=== PATIENT | male | born 1955 | race Caucasian/White ===

== ENCOUNTER 2016-09-02 23:54 | Emergency (ER) | payer OTHER ==
[~2016-09-02] VITALS: Ht 175.3 cm; Wt 99.8 kg
[~2016-09-02 23:54] MED LIST: GABA-531 PO; IBUP-1479 PO; LOSA100T11 PO; MORP15TA60 PO
[2016-09-03 00:15] VITALS: BP_SYST 151
[2016-09-03] MEDS ORDERED: PROMETHAZINE-DM 6.25 MG-15 MG/5 ML UDC PO PRN (00:45)
[2016-09-03] MEDS ORDERED: LevALBUTEROL HCL 1.25 MG/0.5 ML *CONC.* VIAL.NEB (XOPENEX CONC.) INH ONE ×2 (00:45→02:00)
[2016-09-03] MEDS ORDERED: IPRATROPIUM BROM 0.5 MG/2.5 ML VIAL.NEB (ATROVENT) IH ONE (00:45)
[2016-09-03] MEDS ORDERED: IPRATROPIUM/ALBUTEROL SULFATE 3 ML AMPUL.NEB ONE (01:04)
[2016-09-03] MEDS ORDERED: BUDESONIDE 0.5 MG/2 ML AMPUL.NEB ONE (01:04)
[2016-09-03] MEDS ORDERED: ALBUTEROL SULFATE 0.083% 2.5 MG/3 ML VIAL.NEB INH ONE (01:04)
[2016-09-03] MEDS ORDERED: AZITHROMYCIN 250 MG TABLET PO ONE (02:00)
[2016-09-03 02:50] VITALS: BP_SYST 134
== END 2016-09-03 02:50 | disposition home or self-care (01) ==
LOC: SED 23:54
DX: J40 Bronchitis, not specified as acute or chronic (principal); I10 Essential (primary) hypertension; Z88.0 Allergy status to penicillin; Z88.5 Allergy status to narcotic agent
CPT/HCPCS: 71020; 94640; 99284; Q0144

== ENCOUNTER 2016-09-19 18:43 | Emergency (ER) | payer OTHER ==
[~2016-09-19] VITALS: Ht 175.3 cm; Wt 98.9 kg
[2016-09-19 18:56] VITALS: BP_SYST 160
[2016-09-19 19:25] VITALS: BP_SYST 158
== END 2016-09-19 19:25 | disposition home or self-care (01) ==
LOC: SED 18:43
DX: J40 Bronchitis, not specified as acute or chronic (principal); I10 Essential (primary) hypertension; Z88.5 Allergy status to narcotic agent; Z88.0 Allergy status to penicillin
CPT/HCPCS: 71010; 99283

== ENCOUNTER 2016-09-26 03:48 | Emergency (ER) | payer OTHER ==
[~2016-09-26] VITALS: Ht 175.3 cm; Wt 99.8 kg
[2016-09-26 03:52] VITALS: BP_SYST 145
[2016-09-26] MEDS ORDERED: MAGNESIUM SULFATE 1 GM/2 ML VIAL ONE (04:20)
[2016-09-26] MEDS: methylPREDNISolone SOD SUCC/PF 62.5 MG/ML VIAL IVP ONE (04:23)
[2016-09-26] MEDS: IPRATROPIUM BROM 0.5 MG/2.5 ML VIAL.NEB (ATROVENT) IH ONE ×2 (04:24→05:03)
[2016-09-26] MEDS: ALBUTEROL SULFATE 0.083% 2.5 MG/3 ML VIAL.NEB IH ONE ×2 (04:24→05:02)
[2016-09-26] MEDS: MAGNESIUM SULFATE 1 GM in NS 50 ML IV ONE (04:25)
== END 2016-09-26 05:20 | disposition home or self-care (01) ==
LOC: SED 03:48
DX: J45.901 Unspecified asthma with (acute) exacerbation (principal); I10 Essential (primary) hypertension; F32.9 Major depressive disorder, single episode, unspecified; Z88.0 Allergy status to penicillin; Z88.5 Allergy status to narcotic agent
CPT/HCPCS: 71010; 94640; 96365; 96375; 99284; J2930; J3475

== ENCOUNTER 2016-11-15 23:43 | Emergency (ER) | payer OTHER ==
[~2016-11-15] VITALS: Ht 175.3 cm; Wt 99.8 kg
[2016-11-15 23:43] VITALS: BP_SYST 153
--- NOTE | 2016-11-15 23:43 | NUR ---
Patient to ER bed 6 to gown for evaluation. Side rails up. Report given to JUANA SPAIN.
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
--- NOTE | 2016-11-16 00:23 | NUR ---
Dr. Proctor at bedside.
[2016-11-16] MEDS ORDERED: KETOROLAC TROMETHAMINE 60 MG/2 ML VIAL IM ONE (00:30)
--- NOTE | 2016-11-16 01:02 | NUR ---
Patient resting quietly. No acute distress noted. Vital signs within normal range.
[2016-11-16 02:12] VITALS: BP_SYST 132
--- NOTE | 2016-11-16 02:12 | NUR ---
Patient given written and verbal discharge instructions and verbalizes understanding. ER MD discussed with patient the results and treatment provided. Patient in stable condition. ID arm band removed. Rx of Naprosyn given. Patient educated on pain management and to follow up with PMD in 2 days. Pain Scale 4/10, patient discharged with Naprosyn. Patient reports that he will fill his medication tonight and does not want any other medication for pain. Opportunity for questions provided and answered.
== END 2016-11-16 02:12 | disposition home or self-care (01) ==
LOC: SED 23:43
DX: S13.4XXA Sprain of ligaments of cervical spine, initial encounter (principal); S33.9XXA Sprain of unspecified parts of lumbar spine and pelvis, initial encounter; S09.90XA Unspecified injury of head, initial encounter; R10.30 Lower abdominal pain, unspecified; I10 Essential (primary) hypertension; J45.909 Unspecified asthma, uncomplicated; Z90.89 Acquired absence of other organs; Z88.0 Allergy status to penicillin; Z88.5 Allergy status to narcotic agent; Z79.899 Other long term (current) drug therapy; V89.2XXA Person injured in unspecified motor-vehicle accident, traffic, initial encounter; Y93.89 Activity, other specified; Y92.410 Unspecified street and highway as the place of occurrence of the external cause; Y99.8 Other external cause status
CPT/HCPCS: 70450; 72125; 72131; 74176; 96372; 99284; J1885

== ENCOUNTER 2017-01-04 17:39 | Emergency (ER) | payer OTHER ==
[~2017-01-04] VITALS: Ht 175.3 cm; Wt 97.5 kg
[2017-01-04 17:49] VITALS: BP_SYST 157
[2017-01-04 20:28] VITALS: BP_SYST 140
== END 2017-01-04 20:28 | disposition home or self-care (01) ==
LOC: SED 17:39
DX: L03.811 Cellulitis of head [any part, except face] (principal); J45.909 Unspecified asthma, uncomplicated; I10 Essential (primary) hypertension; F32.9 Major depressive disorder, single episode, unspecified; M19.90 Unspecified osteoarthritis, unspecified site; Z90.89 Acquired absence of other organs; Z88.0 Allergy status to penicillin; Z88.5 Allergy status to narcotic agent; Z79.899 Other long term (current) drug therapy
CPT/HCPCS: 99283

== ENCOUNTER 2017-05-09 16:41 | Emergency (ER) | payer OTHER ==
[~2017-05-09] VITALS: Ht 175.3 cm; Wt 97.5 kg
[2017-05-09 16:41] VITALS: BP_SYST 154
[2017-05-09] MEDS ORDERED: ONDANSETRON HCL 4 MG/2 ML VIAL IVP ONE (19:45)
[2017-05-09] MEDS ORDERED: ONDANSETRON 4 MG ODT TAB PO ONE (20:15)
[2017-05-09 20:36] VITALS: BP_SYST 132
== END 2017-05-09 20:35 | disposition home or self-care (01) ==
LOC: SED 16:41
DX: A08.4 Viral intestinal infection, unspecified (principal); J45.909 Unspecified asthma, uncomplicated; I10 Essential (primary) hypertension; M19.90 Unspecified osteoarthritis, unspecified site; Z88.0 Allergy status to penicillin; Z88.5 Allergy status to narcotic agent; Z90.89 Acquired absence of other organs
CPT/HCPCS: 99283; Q0162; J2405

== ENCOUNTER 2018-07-26 15:34 | Emergency (ER) | payer OTHER, MEDICAID ==
[~2018-07-26] VITALS: Ht 175.3 cm; Wt 93.9 kg
[~2018-07-26 15:34] MED LIST changes: -IBUP-1479 PO; +IBUP-1968 PO; -LOSA100T11 PO; +LOSA100T3 PO
[2018-07-26 15:56] VITALS: BP_SYST 136
== END 2018-07-26 18:10 | disposition home or self-care (01) ==
LOC: SED 15:34
DX: J10.1 Influenza due to other identified influenza virus with other respiratory manifestations (principal); I10 Essential (primary) hypertension; J45.909 Unspecified asthma, uncomplicated; M19.90 Unspecified osteoarthritis, unspecified site; F32.9 Major depressive disorder, single episode, unspecified; Z88.0 Allergy status to penicillin; Z88.5 Allergy status to narcotic agent; Z79.899 Other long term (current) drug therapy
CPT/HCPCS: 36415; 71045; 86710; 99284

== ENCOUNTER 2018-09-06 19:26 | Emergency (ER) | payer OTHER, MEDICAID ==
[~2018-09-06] VITALS: Ht 175.3 cm; Wt 90.7 kg
[2018-09-06 19:38] VITALS: BP_SYST 158
[2018-09-06] MEDS ORDERED: CLINDAMYCIN PHOSPHATE 300 MG/2 ML VIAL IM ONE (20:00)
[2018-09-06] MEDS ORDERED: KETOROLAC TROMETHAMINE 60 MG/2 ML VIAL IM ONE (20:00)
[2018-09-06 20:24] VITALS: BP_SYST 142
== END 2018-09-06 20:24 | disposition home or self-care (01) ==
LOC: SED 19:26
DX: K08.89 Other specified disorders of teeth and supporting structures (principal); J45.909 Unspecified asthma, uncomplicated; I10 Essential (primary) hypertension; M19.90 Unspecified osteoarthritis, unspecified site; F32.9 Major depressive disorder, single episode, unspecified; Z90.89 Acquired absence of other organs; Z88.0 Allergy status to penicillin; Z88.5 Allergy status to narcotic agent; Z79.899 Other long term (current) drug therapy
CPT/HCPCS: 96372; 99283; J1885; J3490

== ENCOUNTER 2018-09-09 20:20 | Emergency (ER) | payer OTHER, MEDICAID ==
[~2018-09-09] VITALS: Ht 175.3 cm; Wt 92.1 kg
[2018-09-09 20:33] VITALS: BP_SYST 148
--- NOTE | 2018-09-09 22:48 | NUR ---
Pt c/o pain to site of tooth extraction to front right lower jaw. Pt states tooth was extracted on 09/02/2018, but he ran out of pain medication. No swelling or drainage noted to site. Pt states that he received an Rx for [place] but never got it filled, and has been taking Ibuprofen instead. Pt is requesting a refill of Ibuprofen.
--- NOTE | 2018-09-09 22:48 | NUR ---
Patient to ER bed 08 to gown for evaluation. Side rails up.
--- NOTE | 2018-09-09 23:18 | NUR ---
Dr. Godinez at bedside.
[2018-09-09] MEDS ORDERED: HYDROcodone/ACETAMIN 5-325 MG TAB (NORCO/ VICODIN) PO ONE (23:30)
[2018-09-09 23:34] VITALS: BP_SYST 133
--- NOTE | 2018-09-09 23:34 | NUR ---
Patient given written and verbal discharge instructions and verbalizes understanding. ER MD discussed with patient the results and treatment provided. Patient in stable condition. ID arm band removed. Rx of Ibuprofen given. Patient educated on pain management and to follow up with PMD. Pain Scale 3/10. Opportunity for questions provided and answered. Medication side effect fact sheet provided.
== END 2018-09-09 23:31 | disposition home or self-care (01) ==
LOC: SED 20:20
DX: K91.89 Other postprocedural complications and disorders of digestive system (principal); J45.909 Unspecified asthma, uncomplicated; I10 Essential (primary) hypertension; M19.90 Unspecified osteoarthritis, unspecified site; F32.9 Major depressive disorder, single episode, unspecified; Z88.0 Allergy status to penicillin; Z88.5 Allergy status to narcotic agent; Z79.899 Other long term (current) drug therapy
CPT/HCPCS: 99282

== ENCOUNTER 2018-09-16 14:33 | Emergency (ER) | payer OTHER, MEDICAID ==
[~2018-09-16] VITALS: Ht 175.3 cm; Wt 92.5 kg
[2018-09-16 14:57] VITALS: BP_SYST 162
--- NOTE | 2018-09-16 15:01 | NUR ---
Patient triaged and placed in waiting room. VSS and patient appears in no acute distress at this time. Accompanied by self, awaiting available bed, and MD notified of need for MSE.
--- NOTE | 2018-09-16 16:08 | NUR ---
Pt taken to eyewash station and instructed to wash eyes ~10 minutes. Visual acuity to be completed s/p eye wash
--- NOTE | 2018-09-16 16:25 | NUR ---
PT reports no relief from eyewash. Visual acuity: L: 20/25, R: 20/25; Bilateral: 20/25. Pt reports he wears glasses, but isn't wearing them today.
--- NOTE | 2018-09-16 16:26 | NUR ---
Pt placed back in waiting room with no apparent distress.
--- NOTE | 2018-09-16 16:52 | NUR ---
BROUGHT BACK TO BED #8 AND REPORT GIVEN TO JOHANA
--- NOTE | 2018-09-16 16:53 | NUR ---
Pt AAOx4 ambulated into ED c/o irritation to bilateral eyes s/p getting brush in his eyes while trimming trees x 4 days ago. Pt has been rinsing eyes with no relief. Pt denies pain, but feels sensation of splinters poking the back of his eyes. Redness to eyes present, no discharge. No other injuries/complaints per pt/noted. Will continue to monitor.
--- NOTE | 2018-09-16 17:16 | NUR ---
Dr. Meyers @ bedside for examination.
[2018-09-16 18:16] VITALS: BP_SYST 155
--- NOTE | 2018-09-16 18:16 | NUR ---
Patient given written and verbal discharge instructions and verbalizes understanding. ER MD Meyers discussed with patient the results and treatment provided. Patient in stable condition. ID arm band removed. Rx of Sulfacetamide Sodium 10% Ophthalmic Solution given. Patient educated on pain management and to follow up with PMD. Pain Scale 0. Opportunity for questions provided and answered. Medication side effect fact sheet provided.
[2018-09-16] MEDS ORDERED: DIPH-TET-PERTUS Vaccine 0.5 ML VIAL (ADACEL) I.M. ONE (18:30)
== END 2018-09-16 18:16 | disposition home or self-care (01) ==
LOC: SED 14:33
DX: T15.02XA Foreign body in cornea, left eye, initial encounter (principal); H10.9 Unspecified conjunctivitis; J45.909 Unspecified asthma, uncomplicated; I10 Essential (primary) hypertension; M19.90 Unspecified osteoarthritis, unspecified site; F32.9 Major depressive disorder, single episode, unspecified; Z88.0 Allergy status to penicillin; Z88.5 Allergy status to narcotic agent; Z79.899 Other long term (current) drug therapy; X58.XXXA Exposure to other specified factors, initial encounter; Y93.89 Activity, other specified; Y92.89 Other specified places as the place of occurrence of the external cause; Y99.8 Other external cause status
CPT/HCPCS: 90715; 99284

== ENCOUNTER 2019-02-03 00:18 | Inpatient (IN) | payer OTHER, MEDICAID ==
[~2019-02-03] VITALS: Ht 175.3 cm; Wt 98.9 kg
[2019-02-03 00:23] VITALS: BP_SYST 160
--- NOTE | 2019-02-03 00:23 | NUR ---
Patient triaged and placed in waiting room. VSS and patient appears in no acute distress at this time. Accompanied by SELF, awaiting available bed, and MD notified of need for MSE.
[2019-02-03 01:26] LABS: BASOPHILS # (AUTO) 0.1 K/uL (0.0-0.2); EOSINOPHILS # (AUTO) 0.2 K/uL (0.0-0.4); EOSINOPHILS % (AUTO) 2.6 % (0.0-4.0); HEMATOCRIT 41.9 % (36-54); HEMOGLOBIN 14.8 g/dL (14.0-18.0); LYMPHOCYTES # (AUTO) 1.4 K/uL (1.0-5.5); LYMPHOCYTES % (AUTO) 15.2 % (20.5-51.5); MEAN CORPUSCULAR HEMOGLOBIN 33 pg (27-31); MEAN CORPUSCULAR HGB CONC 35 % (32-36); MEAN CORPUSCULAR VOLUME 94 fL (79.0-98.0); MONOCYTES # (AUTO) 0.8 K/uL (0.0-1.0); MONOCYTES % (AUTO) 8.6 % (1.7-9.3); NEUTROPHILS # (AUTO) 6.8 K/uL (1.8-7.7); NEUTROPHILS % (AUTO) 72.6 % (40.0-70.0); PLATELET COUNT (AUTO) 283 K/uL (130-430); RED BLOOD CELL COUNT(AUTO) 4.44 MIL/uL (4.2-6.2); RED CELL DISTRIBUTION WIDTH 13.6 % (9.0-15.0); WHITE BLOOD COUNT (AUTO) 9.4 K/uL (4.8-10.8)
[2019-02-03 01:35] LABS: CALCIUM 8.5 mg/dL (8.4-11.0); CREATININE 0.99 mg/dL (0.55-1.30); POTASSIUM 4.1 mmol/L (3.5-5.1)
[2019-02-03 01:44] LABS: ALBUMIN 3.6 g/dL (3.4-4.8); TOTAL BILIRUBIN 0.7 mg/dL (0.0-1.0)
--- NOTE | 2019-02-03 02:12 | NUR ---
Placed in room 1 . Placed on cardiac cath lab manager, blood pressure machine and pulse oximeter. To gown for exam. Side rails up. Report given to LIUDMILA SPAIN.
[2019-02-03 02:17] LABS: CKMB RELATIVE INDEX 1.5 (0.0-2.9); CREATINE KINASE MB 5.6 ng/mL (0-3.6)
--- NOTE | 2019-02-03 02:30 | NUR ---
pt CAME TO THE ED FOR BILATERAL LEG SWELLING WHICH STARTED YESTERDAY, DENIES SOB OR CHEST PAIN. DENIES N/V/D OR FEVER. NO OTHER COMPLAINTS/INJURIES NOTED. LATISHA CONT. TO MONITOR.
--- NOTE | 2019-02-03 02:39 | NUR ---
ER at bedside examining patient.
[2019-02-03] MEDS ORDERED: FUROSEMIDE 40 MG/4 ML VIAL IVP ONE (02:45)
[2019-02-03] MEDS ORDERED: MORPHINE 4 MG/ML INJ. SYRINGE IVP ONE (02:45)
--- NOTE | 2019-02-03 03:17 | NUR ---
Ultrasound at bedside.
[2019-02-03] MEDS ORDERED: TRAM-350 PO (03:34)
[2019-02-03] MEDS ORDERED: BACL10TA PO (03:34)
[2019-02-03] MEDS ORDERED: LOSA100T3 PO (03:34)
--- NOTE | 2019-02-03 04:00 | NUR ---
Patient will be admitted to care of dR. VASQUEZ. Admitted to tELE unit. Will go to room 125. Belongings list completed. Summary report printed. Report will be given at bedside.
--- NOTE | 2019-02-03 04:20 | NUR ---
Medication reconciliation completed with information provided by patient. Any prior medication reconciliation on file was reviewed and corrected.
--- NOTE | 2019-02-03 04:51 | NUR ---
Transfer to Tele via ACLS protocol. Licensed nurse present. IV present no signs or symptoms of infiltration.
--- NOTE | 2019-02-03 04:51 | NUR ---
ADMISSION NOTE Received patient from ER via spenser, received report from Sarah SPAIN. Patient admitted with diagnosis of Lower extremity edema. Patient oriented to hospital routine, call light, toileting and safety-patient verbalized understanding.
--- NOTE | 2019-02-03 04:55 | NUR ---
Opening notes Patient is resting comfortably in bed. No signs of distress noted. Breathing even and unlabored. IV patent and intact, no signs of infiltration noted. Patient states he usually has knee braces, but is unable to use them due to his leg swelling. Patient uses canes x2 to help him walk. Patient states he walks fine, "I just have bad knees." Oriented patient to room and call light. Patient able to demonstrate how to use call light. Call light with the patient. Safety precautions in place.
[2019-02-03 05:01] VITALS: BP_SYST 143
--- NOTE | 2019-02-03 05:26 | NUR ---
CONSULTATION PAGED/CALLED Reason for Consultation: ELEVATED TROP Person Who was Notified: Consulting Physician: PRASHANT Modeling Teacher Specialty: CARDIO Ordering Physician: PEDRO
--- NOTE | 2019-02-03 05:26 | NUR ---
Spoke to Dr. Ervin Informed MD about elevated troponin and if he wanted to add morning labs. No new orders. MD will input orders.
--- NOTE | 2019-02-03 07:31 | NUR ---
Initial notes: Patient awake, alert and oriented. Stable. I.V. access patent. Call light within reach. Safety measures in placed. Report received from night filler.
[2019-02-03 08:00] VITALS: BP_SYST 130
[2019-02-03] MEDS ORDERED: POTASSIUM CHLORIDE 20 MEQ TAB.PRT.SR PO PRN (08:45)
[2019-02-03] MEDS ORDERED: LORazepam 2 MG/ML VIAL IVP PRN (08:45)
[2019-02-03] MEDS ORDERED: MAGNESIUM SULFATE 50 ML IV PRN (08:45)
[2019-02-03] MEDS ORDERED: MUPIROCIN 2% TOPICAL OINTMENT 22 GM NS PRN (08:45)
[2019-02-03] MEDS ORDERED: ONDANSETRON HCL 4 MG/2 ML VIAL IVP PRN (08:45)
[2019-02-03] MEDS ORDERED: MORPHINE 2 MG/ML INJ. SYRINGE IVP PRN ×2 (08:45)
[2019-02-03] MEDS ORDERED: ZOLPIDEM TARTRATE 5 MG TABLET PO PRN (08:45)
[2019-02-03] MEDS ORDERED: DOCUSATE SODIUM 100 MG CAPSULE PO PRN (08:45)
[2019-02-03] MEDS: GABAPENTIN 300 MG CAPSULE PO SCH ×3 (09:13→20:42)
[2019-02-03] MEDS: LOSARTAN POTASSIUM 50 MG TABLET (COZAAR) PO SCH ×2 (09:14→20:42)
[2019-02-03] MEDS: BACLOFEN 10 MG TABLET PO SCH ×2 (09:14→20:42)
[2019-02-03] MEDS: HEPARIN SODIUM,PORCINE 5000 UNITS/ML VIAL SUBCUT SCH ×2 (09:15→20:44)
--- NOTE | 2019-02-03 09:17 | NUR ---
2DECHO: 2DECHO AT BEDSIDE.
--- NOTE | 2019-02-03 11:45 | NUR ---
rounds: Patient sleeping. No distress noted.
[2019-02-03 12:12] VITALS: BP_SYST 134
--- NOTE | 2019-02-03 14:02 | NUR ---
rounds: patient sleeping. no distress noted.
[2019-02-03 16:35] VITALS: BP_SYST 131
--- NOTE | 2019-02-03 17:05 | NUR ---
rounds: patient sleeping. no distress noted.
--- NOTE | 2019-02-03 18:21 | NUR ---
Closing notes: Patient resting on bed and about to eat dinner. Stable. Needs attended. Call light within reach. Safety measures in placed. Report will be given to operating room surgical technologist.
--- NOTE | 2019-02-03 19:45 | NUR ---
OPENING NOTES Received patient asleep, eyes closed. No signs of acute respiratory distress, room air. Call light within reach, bed alarm on, and bed at lowest position. Will continue to monitor.
[2019-02-03 20:00] VITALS: BP_SYST 167
--- NOTE | 2019-02-04 00:06 | NUR ---
Patient is resting, eyes closed. No signs of acute respiratory distress observed. Safety precautions in place. Will continue to monitor.
--- NOTE | 2019-02-04 01:44 | NUR ---
CRITICAL LAB - TROPONIN 0.072 RECEIVED FROM LAB ([facility]). PREVIOUS TROP LEVEL WAS 0.071.
--- NOTE | 2019-02-04 02:12 | NUR ---
Patient awake, HOB elevated. Patient has asked for sandwiches. No signs of acute respiratory distress. IV SL patent, dressings c/d/i. Bed alarm on, bed at lowest position, and call light within reach. Will continue to monitor.
--- NOTE | 2019-02-04 02:16 | NUR ---
PAGED: PAGED DR. CERDA REGARDING CRITICAL VALUE. SPOKE WITH GLORY
[2019-02-04 02:32] VITALS: BP_SYST 113
--- NOTE | 2019-02-04 03:26 | NUR ---
PAGED: PAGED DR. CERDA REGARDING CRITICAL LAB. DR. ROSEN IS AUTOMOTIVE GLASS MECHANIC. SPOKE WITH SUYAPA
--- NOTE | 2019-02-04 03:28 | NUR ---
Spoke to Dr. Bailey regarding critical troponin of 0.072. No new orders. Will continue to monitor.
--- NOTE | 2019-02-04 04:15 | NUR ---
Patient is awake, watching television. No signs of respiratory distress. HOB elevated. Reoriented patient to use of call light. Safety precautions in place. Will continue to monitor.
--- NOTE | 2019-02-04 06:28 | NUR ---
CLOSING NOTES Patient is resting. No signs of acute respiratory distress, HOB elevated. IV at Left AC 20g, patent, dressings c/d/i. Call light within reach, bed alarm on, bed at lowest position. HOB elevated. Will endorse care to oncoming shift.
[2019-02-04 08:00] VITALS: BP_SYST 148
[2019-02-04] MEDS ORDERED: traMADol HCL HCL 50 MG TABLET (ULTRAM) PO ONE (09:45)
[2019-02-04] MEDS: BACLOFEN 10 MG TABLET PO SCH ×2 (10:47→20:47)
[2019-02-04] MEDS: LOSARTAN POTASSIUM 50 MG TABLET (COZAAR) PO SCH ×2 (10:49→20:46)
[2019-02-04] MEDS: GABAPENTIN 300 MG CAPSULE PO SCH ×3 (10:50→20:47)
[2019-02-04] MEDS: ACETAMINOPHEN 325 MG TABLET PO PRN ×2 (10:50→17:42)
[2019-02-04] MEDS: HEPARIN SODIUM,PORCINE 5000 UNITS/ML VIAL SUBCUT SCH ×2 (10:54→20:49)
[2019-02-04 13:40] VITALS: BP_SYST 136
--- NOTE | 2019-02-04 16:18 | NUR ---
CANCELL DISCHARGE PATIENT FOR DISCHARGE TODAY, TRIED TO AMBULATE BUT STILL FEEL WEAK ON HIS LEGS. PATIENT USE A CANE. HE SAID THAT HE NEEDS TO DRIVE BACK TO [place] AND HIS CAR IS OUTSIDE. HIS BROTHER IS NOT AVAILABLE TO PICK HIM UP TILL TOMORROW. NOTIFIED DR VASQUEZ ABOUT THE PATIENT SITUATION, HE SAID PATIENT CAN STAY OVERNIGHT BUT NEEDS TO BE DISCHARGE TOMORROW. PT MADE AWARE.
[2019-02-04 16:35] VITALS: BP_SYST 159
[2019-02-04] MEDS ORDERED: traMADol HCL HCL 50 MG TABLET (ULTRAM) PO PRN (17:45)
--- NOTE | 2019-02-04 19:15 | NUR ---
OPENING NOTE RECEIVED CARE OF PT. PT IS AAOX4, RESTING IN BED, NO S/S OF ACUTE DISTRESS. BREATHING IS UNLABORED TO ROOM AIR. PT BROUGHT A TURKEY SANDWICH AND FRESH ICE WATER PER REQUEST. POC DISCUSSED WITH PT, PT VERBALIZED UNDERSTANDING. PT ORIENTED TO USE OF CALL LIGHT AND ENCOURAGED TO CALL FOR ANY ASSISTANCE. SAFETY PRECAUTIONS ARE IN PLACE: BED IS LOCKED IN LOWEST POSITION, SIDE RAILS UP X2, CALL LIGHT WITH PT, BED ALARM ON. WILL MONITOR.
[2019-02-04 20:00] VITALS: BP_SYST 139
--- NOTE | 2019-02-04 20:28 | NUR ---
SHOWER PT ASSISTED TO TAKE A SHOWER WITH ASSISTANCE FROM TANA ANALYN.
--- NOTE | 2019-02-04 20:49 | NUR ---
MEDICATION PASS/ULTRAM SCHEDULED MEDICATIONS ADMINISTERED ORDERED. ULTRAM 50 MG PO ALSO ADMINISTERED PER PT REQUEST FOR REPORT OF PAIN. MEDICATIONS AND POTENTIAL SIDE EFFECTS EXPLAINED TO PT. PT VERBALIZED UNDERSTANDING. PT DENIES FURTHER NEEDS. SAFETY MAINTAINED. WILL MONITOR.
--- NOTE | 2019-02-04 22:55 | NUR ---
RESTING PT RESTING IN BED TALKING ON THE PHONE. NO S/S OF ACUTE DISTRESS. SAFETY AND FALL PRECAUTIONS ARE IN PLACE. WILL MONITOR.
--- NOTE | 2019-02-05 00:48 | NUR ---
RN NOTE: PT RESTING IN BED WITH NO S/S OF ACUTE DISTRESS. VISIBLE SYMMETRICAL RISE AND FALL OF CHEST TO ROOM AIR. SAFETY AND FALL PRECAUTIONS MAINTAINED. WILL MONITOR.
[2019-02-05 01:18] VITALS: BP_SYST 153
--- NOTE | 2019-02-05 02:02 | NUR ---
RN NOTE: PT RESTING IN BED, NO S/S OF ACUTE DISTRESS, PT DENIES NEEDS AT THIS TIME. SAFETY MAINTAINED. WILL MONITOR.
--- NOTE | 2019-02-05 04:29 | NUR ---
AMA PT CAME UP TO NURSES STATION FULLY DRESSED AND STATED THAT HE NEEDED TO LEAVE IMMEDIATELY. PT STATED THAT HE NEEDED TO DRIVE TO CATCH THE [employer] TO [place] AND THAT HE NEEDED TO BE EARLY ENOUGH TO CATCH THE BUS TO MEET HIS BROTHER. PT IS AAOX4, RISKS DISCUSSED WITH PT REGARDING LEAVING WITHOUT DISCHARGE ORDER. PT EDUCATED REGARDING SAFETY AND IMPORTANCE OF BEING DISCHARGED BY MD. PT VERBALIZED UNDERSTANDING REGARDING RISKS AND STATED THAT HE STILL WANTED TO LEAVE. PT SIGNED AMA FORM. IV D/C'D AND NAME BAND REMOVED. PT ESCORTED WITH HIS PERSONAL BELONGINGS TO HIS CAR BY [employer] INVESTIGATOR. Addendum: 02/05/19 at 0740 by Daina Lake RN CLARIFICATION OF ABOVE NOTES NOTIFIED DR. VASQUEZ THAT PT LEFT AMA, PER DR. VASQUEZ- PT HAS AN ORDER TO BE DISCHARGED YESTERDAY BUT DUE TO LACK OF TRANSPORTATION AND WEAKNESS TO LEGS YESTERDAY. PT LIV[facility] IN [facility] AND WOULD HAVE NEEDED TO DRIVE FAR. PER DR. VASQUEZ, PT DID NOT LEAVE AMA HE HAD A DISCHARGE ORDER. PT UNABLE TO WAIT FOR DISCHARGE PAPER WORK.
== END 2019-02-05 04:29 | disposition left against medical advice (07) | DRG 281 ==
LOC: SED 00:18 → STU 04:51 → SMU 02-04 18:29
PROVIDERS: ADMIT General Practice; ATTEND General Practice
DX: I21.A1 Myocardial infarction type 2 (principal); F11.20 Opioid dependence, uncomplicated; G89.4 Chronic pain syndrome; I10 Essential (primary) hypertension; M17.0 Bilateral primary osteoarthritis of knee; M47.812 Spondylosis without myelopathy or radiculopathy, cervical region; K42.9 Umbilical hernia without obstruction or gangrene; M47.816 Spondylosis without myelopathy or radiculopathy, lumbar region; J45.909 Unspecified asthma, uncomplicated; Z53.21 Procedure and treatment not carried out due to patient leaving prior to being seen by health care provider; F32.9 Major depressive disorder, single episode, unspecified; M19.90 Unspecified osteoarthritis, unspecified site; Z82.3 Family history of stroke; Z79.899 Other long term (current) drug therapy; Z88.5 Allergy status to narcotic agent; Z88.0 Allergy status to penicillin
CPT/HCPCS: 36415; 71045; 80053; 82550-TC; 82553-TC; 83880; 84484; 85025; 85379; 93005; 93306; 93970; 96374; 96375; 99285; G0378; J1644; J1940; J2270

== ENCOUNTER 2019-07-22 18:07 | Emergency (ER) | payer OTHER, MEDICAID ==
[~2019-07-22] VITALS: Ht 175.3 cm; Wt 97.5 kg
[2019-07-22 18:07] VITALS: BP_SYST 155
[~2019-07-22 18:07] MED LIST changes: +BACL10TA PO; +TRAM-350 PO
[2019-07-22] MEDS ORDERED: MAGNESIUM SULFATE 1 GM in NS 50 ML IV ONE (18:30)
[2019-07-22 18:43] LABS: BASOPHILS # (AUTO) 0.1 K/uL (0.0-0.2); BASOPHILS % (AUTO) 0.5 % (0.0-2.0); EOSINOPHILS # (AUTO) 0.2 K/uL (0.0-0.4); EOSINOPHILS % (AUTO) 1.5 % (0.0-4.0); HEMATOCRIT 47.9 % (36-54); HEMOGLOBIN 16.2 g/dL (14.0-18.0); LYMPHOCYTES # (AUTO) 0.9 K/uL (1.0-5.5); LYMPHOCYTES % (AUTO) 8.2 % (20.5-51.5); MEAN CORPUSCULAR HEMOGLOBIN 32 pg (27-31); MEAN CORPUSCULAR HGB CONC 34 % (32-36); MEAN CORPUSCULAR VOLUME 95 fL (79.0-98.0); MONOCYTES # (AUTO) 0.9 K/uL (0.0-1.0); MONOCYTES % (AUTO) 8.2 % (1.7-9.3); NEUTROPHILS # (AUTO) 9.2 K/uL (1.8-7.7); NEUTROPHILS % (AUTO) 81.6 % (40.0-70.0); PLATELET COUNT (AUTO) 219 K/uL (130-430); RED BLOOD CELL COUNT(AUTO) 5.04 MIL/uL (4.2-6.2); RED CELL DISTRIBUTION WIDTH 14.8 % (9.0-15.0); WHITE BLOOD COUNT (AUTO) 11.2 K/uL (4.8-10.8)
[2019-07-22 18:54] LABS: CALCIUM 8.9 mg/dL (8.4-11.0); CREATININE 0.99 mg/dL (0.55-1.30)
[2019-07-22 19:01] LABS: ALBUMIN 3.6 g/dL (3.4-4.8); TOTAL BILIRUBIN 0.6 mg/dL (0.0-1.0)
[2019-07-22] MEDS ORDERED: MAGNESIUM SULFATE 1 GM/2 ML VIAL ONE (19:13)
[2019-07-22] MEDS ORDERED: KETOROLAC TROMETHAMINE 30 MG VIAL IVP ONE (19:15)
[2019-07-22 19:58] VITALS: BP_SYST 142
== END 2019-07-23 00:02 | disposition home or self-care (01) ==
LOC: SED 18:07
DX: G89.29 Other chronic pain (principal); M25.562 Pain in left knee; M25.561 Pain in right knee; M19.90 Unspecified osteoarthritis, unspecified site; J45.909 Unspecified asthma, uncomplicated; I10 Essential (primary) hypertension; Z79.899 Other long term (current) drug therapy; Z88.5 Allergy status to narcotic agent; Z88.0 Allergy status to penicillin
CPT/HCPCS: 36415; 80053; 83605; 83735; 85025; 87040; 96365; 96375; 99284; J1885; J3475

== ENCOUNTER 2020-11-15 18:38 | Inpatient (IN) | payer OTHER, MEDICAID, SELFPAY ==
[~2020-11-15] VITALS: Ht 175.3 cm; Wt 97.6 kg
[2020-11-15 19:00] VITALS: BP_SYST 157
[2020-11-15] MEDS ORDERED: ASPIRIN 81 MG TAB.CHEW PO ONE (20:45)
[2020-11-15] MEDS ORDERED: FAMOTIDINE 20 MG TABLET PO ONE (20:45)
[2020-11-15 21:07] LABS: BASOPHILS # (AUTO) 0.1 K/uL (0.0-0.2); BASOPHILS % (AUTO) 0.7 % (0.0-2.0); EOSINOPHILS # (AUTO) 0.1 K/uL (0.0-0.4); EOSINOPHILS % (AUTO) 0.5 % (0.0-4.0); HEMATOCRIT 48.7 % (36-54); HEMOGLOBIN 15.9 g/dL (14.0-18.0); LYMPHOCYTES # (AUTO) 1.4 K/uL (1.0-5.5); LYMPHOCYTES % (AUTO) 10.8 % (20.5-51.5); MEAN CORPUSCULAR HEMOGLOBIN 32 pg (27-31); MEAN CORPUSCULAR HGB CONC 33 % (32-36); MEAN CORPUSCULAR VOLUME 97 fL (79.0-98.0); MONOCYTES # (AUTO) 0.9 K/uL (0.0-1.0); NEUTROPHILS # (AUTO) 10.7 K/uL (1.8-7.7); PLATELET COUNT (AUTO) 292 K/uL (130-430); RED BLOOD CELL COUNT(AUTO) 5.04 MIL/uL (4.2-6.2); WHITE BLOOD COUNT (AUTO) 13.3 K/uL (4.8-10.8)
[2020-11-15 21:15] LABS: CALCIUM 8.9 mg/dL (8.4-11.0); CREATININE 0.97 mg/dL (0.55-1.30); POTASSIUM 4.3 mmol/L (3.5-5.1)
[2020-11-15 21:21] LABS: ALBUMIN 3.7 g/dL (3.4-4.8); TOTAL BILIRUBIN 0.7 mg/dL (0.0-1.0)
[2020-11-15] MEDS ORDERED: TRAM50TA PO (21:33)
[2020-11-15] MEDS ORDERED: NEBI5TAB3 PO (21:33)
[2020-11-15] MEDS ORDERED: MAGN400T10 PO (21:34)
[2020-11-15] MEDS ORDERED: ENOXAPARIN SODIUM 100 MG/ML SYRINGE SUBCUT ONE (21:45)
[2020-11-15] MEDS ORDERED: CYAI1000 IM (22:38)
[2020-11-15 22:46] VITALS: BP_SYST 139
[2020-11-15] MEDS ORDERED: ONDANSETRON HCL 4 MG/2 ML VIAL IVP PRN (23:00)
[2020-11-15] MEDS ORDERED: LORazepam 2 MG/ML VIAL IVP PRN (23:00)
[2020-11-15] MEDS ORDERED: traMADol HCL HCL 50 MG TABLET (ULTRAM) PO PRN (23:00)
[2020-11-15] MEDS ORDERED: ACETAMINOPHEN 325 MG TABLET PO PRN (23:00)
[2020-11-16 00:08] LABS: PROTHROMBIN TIME 10.4 SECS (9.5-12.5)
[2020-11-16] MEDS ORDERED: IBUP-23 PO (00:08)
[2020-11-16] MEDS ORDERED: SILD20TA2 PO (00:08)
[2020-11-16] MEDS ORDERED: DIPH25TA62 PO (00:08)
[2020-11-16] MEDS ORDERED: LORA10TA7 PO (00:08)
[2020-11-16 01:18] VITALS: BP_SYST 168
[2020-11-16] MEDS ORDERED: COMMUNICATION ORDER XX ONE (01:30)
[2020-11-16] MEDS ORDERED: METOPROLOL TARTRATE 25 MG TABLET PO ONE (01:30)
[2020-11-16] MEDS ORDERED: HEPARIN SODIUM,PORCINE 5,000 UNITS/ML VIAL IV PRN ×2 (01:45)
[2020-11-16] MEDS: HEPARIN 25,000 UNITS/D5W 250ML 250 ML IV PRN ×2 (01:56→09:06)
[2020-11-16 02:42] VITALS: BP_SYST 155
[2020-11-16] MEDS: NORMAL SALINE 5 ML DISP.SYRIN IVF SCH ×3 (06:00→22:50)
[2020-11-16] MEDS ORDERED: NORMAL SALINE 5 ML DISP.SYRIN IVF SCH (06:00)
[2020-11-16 06:58] LABS: BASOPHILS # (AUTO) 0.1 K/uL (0.0-0.2); BASOPHILS % (AUTO) 0.9 % (0.0-2.0); EOSINOPHILS # (AUTO) 0.1 K/uL (0.0-0.4); HEMATOCRIT 46.1 % (36-54); HEMOGLOBIN 15.4 g/dL (14.0-18.0); LYMPHOCYTES # (AUTO) 1.4 K/uL (1.0-5.5); LYMPHOCYTES % (AUTO) 12.2 % (20.5-51.5); MEAN CORPUSCULAR HEMOGLOBIN 32 pg (27-31); MEAN CORPUSCULAR HGB CONC 33 % (32-36); MEAN CORPUSCULAR VOLUME 96 fL (79.0-98.0); MONOCYTES % (AUTO) 8.4 % (1.7-9.3); NEUTROPHILS # (AUTO) 9.2 K/uL (1.8-7.7); NEUTROPHILS % (AUTO) 77.5 % (40.0-70.0); PLATELET COUNT (AUTO) 261 K/uL (130-430); RED BLOOD CELL COUNT(AUTO) 4.78 MIL/uL (4.2-6.2); RED CELL DISTRIBUTION WIDTH 13.8 % (9.0-15.0); WHITE BLOOD COUNT (AUTO) 11.8 K/uL (4.8-10.8)
[2020-11-16 07:16] LABS: CALCIUM 8.8 mg/dL (8.4-11.0); CREATININE 0.91 mg/dL (0.55-1.30); PHOSPHORUS 3.7 mg/dL (2.7-4.5)
[2020-11-16] MEDS ORDERED: LOSARTAN POTASSIUM 50 MG TABLET (COZAAR) PO SCH (09:00)
[2020-11-16 09:10] VITALS: BP_SYST 149
[2020-11-16] MEDS: GABAPENTIN 300 MG CAPSULE PO SCH ×3 (09:11→20:23)
[2020-11-16] MEDS: METOPROLOL TARTRATE 25 MG TABLET PO SCH ×2 (09:12→20:24)
[2020-11-16] MEDS: MAGNESIUM OXIDE 400 MG TABLET PO SCH (09:12)
[2020-11-16] MEDS ORDERED: LOSARTAN POTASSIUM 50 MG TABLET (COZAAR) PO ONE (10:15)
[2020-11-16 11:47] VITALS: BP_SYST 138
[2020-11-16 15:22] VITALS: BP_SYST 157
[2020-11-16 20:00] VITALS: BP_SYST 151
[2020-11-16] MEDS ORDERED: DIPHENHYDRAMINE HCL 25 MG CAPSULE PO SCH (21:00)
[2020-11-17] VITALS: BP_SYST 147
[2020-11-17] MEDS: NORMAL SALINE 5 ML DISP.SYRIN IVF SCH (06:00)
[2020-11-17 06:57] LABS: BASOPHILS # (AUTO) 0.1 K/uL (0.0-0.2); BASOPHILS % (AUTO) 0.8 % (0.0-2.0); EOSINOPHILS # (AUTO) 0.1 K/uL (0.0-0.4); HEMATOCRIT 49.5 % (36-54); HEMOGLOBIN 16.6 g/dL (14.0-18.0); LYMPHOCYTES # (AUTO) 1.6 K/uL (1.0-5.5); LYMPHOCYTES % (AUTO) 13.7 % (20.5-51.5); MEAN CORPUSCULAR HEMOGLOBIN 32 pg (27-31); MEAN CORPUSCULAR HGB CONC 34 % (32-36); MEAN CORPUSCULAR VOLUME 97 fL (79.0-98.0); MONOCYTES # (AUTO) 0.9 K/uL (0.0-1.0); NEUTROPHILS # (AUTO) 8.8 K/uL (1.8-7.7); PLATELET COUNT (AUTO) 277 K/uL (130-430); RED BLOOD CELL COUNT(AUTO) 5.13 MIL/uL (4.2-6.2); RED CELL DISTRIBUTION WIDTH 13.7 % (9.0-15.0); WHITE BLOOD COUNT (AUTO) 11.5 K/uL (4.8-10.8)
[2020-11-17 07:03] LABS: CALCIUM 8.9 mg/dL (8.4-11.0); CREATININE 0.95 mg/dL (0.55-1.30); POTASSIUM 3.8 mmol/L (3.5-5.1)
[2020-11-17 08:20] VITALS: BP_SYST 139
[2020-11-17] MEDS: GABAPENTIN 300 MG CAPSULE PO SCH (08:23)
[2020-11-17] MEDS: METOPROLOL TARTRATE 25 MG TABLET PO SCH (08:23)
[2020-11-17] MEDS: MAGNESIUM OXIDE 400 MG TABLET PO SCH (08:24)
[2020-11-17 08:25] LABS: NEUTROPHILS % (AUTO) 76.5 % (40.0-70.0)
[2020-11-17] MEDS ORDERED: SILDENAFIL CITRATE 20 MG TABLET PO SCH (09:00)
[2020-11-17] MEDS ORDERED: LOSARTAN POTASSIUM 50 MG TABLET (COZAAR) PO SCH (09:00)
[2020-11-17] MEDS ORDERED: LORATADINE 10 MG TABLET PO SCH (09:00)
[2020-11-17 10:47] VITALS: BP_SYST 139
[2020-11-17 11:28] VITALS: BP_SYST 136
[2020-11-22] MEDS ORDERED: CYANOCOBALAMIN 1000 MCG/ML VIAL IM SCH (09:00)
== END 2020-11-17 12:05 | disposition home or self-care (01) | DRG 282 ==
LOC: SED 18:38 → STU 21:42
PROVIDERS: ADMIT Preventive Medicine Preventive Medicine/Occupational Environmental Medicine; ATTEND Preventive Medicine Preventive Medicine/Occupational Environmental Medicine
DX: I21.4 Non-ST elevation (NSTEMI) myocardial infarction (principal); R73.9 Hyperglycemia, unspecified; E78.2 Mixed hyperlipidemia; G89.29 Other chronic pain; M54.9 Dorsalgia, unspecified; F32.9 Major depressive disorder, single episode, unspecified; Z20.822 Contact with and (suspected) exposure to COVID-19; J45.909 Unspecified asthma, uncomplicated; I11.9 Hypertensive heart disease without heart failure; M19.90 Unspecified osteoarthritis, unspecified site; D72.829 Elevated white blood cell count, unspecified; E66.9 Obesity, unspecified; R07.89 Other chest pain; Z88.6 Allergy status to analgesic agent; Z88.0 Allergy status to penicillin; Z79.899 Other long term (current) drug therapy; Z68.31 Body mass index [BMI] 31.0-31.9, adult
CPT/HCPCS: 36415; 71045; 80048; 80053; 80061; 82550; 83735; 83880; 84100; 84443; 84484; 85025; 85379; 85610-TC; 85730-TC; 86710; 93005; 93306; 96374; 99291; G0378; J1644; J1650; Q0163

== ENCOUNTER 2021-03-15 03:25 | Emergency (ER) | payer OTHER, MEDICAID, SELFPAY ==
[~2021-03-15] VITALS: Ht 175.3 cm; Wt 99.8 kg
[~2021-03-15 03:25] MED LIST changes: -BACL10TA PO; +CYAI1000 IM; +DIPH25TA62 PO; -IBUP-1968 PO; +IBUP-23 PO; +LORA10TA7 PO; +MAGN400T10 PO; -MORP15TA60 PO; +NEBI5TAB3 PO; +SILD20TA2 PO; -TRAM-350 PO; +TRAM50TA PO
[2021-03-15 04:00] VITALS: BP_SYST 174
[2021-03-15] MEDS ORDERED: ALBUTEROL SULFATE 0.083% 2.5 MG/3 ML VIAL.NEB INH ONE (04:00)
[2021-03-15] MEDS ORDERED: predniSONE 20 MG TABLET PO ONE (04:00)
--- NOTE | 2021-03-15 04:00 | NUR ---
Patient to ER bed 8 to gown for evaluation. Side rails up.
--- NOTE | 2021-03-15 04:01 | NUR ---
Dr. Ch bedside for pt eval
[2021-03-15] MEDS ORDERED: AZIT-62 PO (04:05)
[2021-03-15] MEDS ORDERED: PRED20TA PO (04:05)
--- NOTE | 2021-03-15 04:05 | NUR ---
Pt BIB family to ED C/O cough for 2 weeks, pt states " have Hx of bronchitis every year " VSS no s/s of acute distress Resting on gurney rails up
[2021-03-15] MEDS ORDERED: ALBMDI INH (04:19)
--- NOTE | 2021-03-15 04:32 | NUR ---
Meds well tolerated, Pt states " feeling a little better "
[2021-03-15 05:08] VITALS: BP_SYST 174
--- NOTE | 2021-03-15 05:08 | NUR ---
Patient given written and verbal discharge instructions and verbalizes understanding. ER MD discussed with patient the results and treatment provided. Patient in stable condition. ID arm band removed. Rx of Ventolin, Zithromax, Prednisone given. Patient educated on pain management and to follow up with PMD. Pain Scale 0/10 Opportunity for questions provided and answered. Medication side effect fact sheet provided.
== END 2021-03-15 05:08 | disposition home or self-care (01) ==
LOC: SED 03:25
DX: J45.901 Unspecified asthma with (acute) exacerbation (principal); I10 Essential (primary) hypertension; Z88.0 Allergy status to penicillin; Z88.5 Allergy status to narcotic agent; Z79.899 Other long term (current) drug therapy
CPT/HCPCS: 71045; 93005; 94640; 99283; J7512; J7613

== ENCOUNTER 2021-05-11 06:34 | Emergency (ER) | payer OTHER, MEDICAID, SELFPAY ==
[~2021-05-11] VITALS: Ht 175.3 cm; Wt 97.1 kg
[~2021-05-11 06:34] MED LIST changes: +ALBMDI INH; +AZIT-93 PO; +PRED20TA PO
--- NOTE | 2021-05-11 07:20 | NUR ---
Pt. triaged in tent with Body aches, back pain, and RUSSELL for a few days, rates pain 8/10
--- NOTE | 2021-05-11 07:25 | NUR ---
covid and influenza swab sent to lab
--- NOTE | 2021-05-11 07:25 | NUR ---
VEE Gallego in tent examining patient.
[2021-05-11 07:27] VITALS: BP_SYST 173
[2021-05-11] MEDS ORDERED: NS 1000 ML IV.SOLN IV ONE (08:45)
[2021-05-11] MEDS ORDERED: ACETAMINOPHEN 500 MG TABLET PO ONE (08:45)
[2021-05-11] MEDS ORDERED: METOCLOPRAMIDE HCL 10 MG/2 ML VIAL IVP ONE (08:45)
--- NOTE | 2021-05-11 09:33 | NUR ---
EKG canceled per Dr. Ch
[2021-05-11 09:35] LABS: BASOPHILS % (AUTO) 0.4 % (0.0-2.0); EOSINOPHILS % (AUTO) 0.1 % (0.0-4.0); HEMATOCRIT 47.4 % (36-54); HEMOGLOBIN 16.5 g/dL (14.0-18.0); LYMPHOCYTES # (AUTO) 0.4 K/uL (1.0-5.5); LYMPHOCYTES % (AUTO) 4.8 % (20.5-51.5); MEAN CORPUSCULAR HEMOGLOBIN 32 pg (27-31); MEAN CORPUSCULAR HGB CONC 35 % (32-36); MEAN CORPUSCULAR VOLUME 92 fL (79.0-98.0); MONOCYTES # (AUTO) 1.8 K/uL (0.0-1.0); NEUTROPHILS # (AUTO) 6.5 K/uL (1.8-7.7); NEUTROPHILS % (AUTO) 74.7 % (40.0-70.0); PLATELET COUNT (AUTO) 188 K/uL (130-430); RED BLOOD CELL COUNT(AUTO) 5.13 MIL/uL (4.2-6.2); RED CELL DISTRIBUTION WIDTH 14.2 % (9.0-15.0); WHITE BLOOD COUNT (AUTO) 8.8 K/uL (4.8-10.8)
[2021-05-11 09:47] LABS: BILIRUBIN,URINE NEGATIVE (NEGATIVE); BLOOD, URINE NEGATIVE (NEGATIVE); CLARITY/URINE CLEAR (CLEAR); COLOR,URINE YELLOW (YELLOW); GLUCOSE,URINE NEGATIVE (NEGATIVE); KETONES,URINE NEGATIVE (NEGATIVE); LEUKOCYTE ESTERASE ,URINE NEGATIVE (NEGATIVE); NITRITE, URINE NEGATIVE (NEGATIVE); PROTEIN URINE NEGATIVE (NEGATIVE); UROBILINOGEN,URINE 0.2 (0.2-1.0)
[2021-05-11 09:56] LABS: CALCIUM 8.8 mg/dL (8.4-11.0); CREATININE 0.94 mg/dL (0.55-1.30); POTASSIUM 3.8 mmol/L (3.5-5.1)
[2021-05-11 10:09] LABS: INR 0.9 (0.80-1.20); PROTHROMBIN TIME 9.9 SECS (9.5-12.5)
--- NOTE | 2021-05-11 12:01 | NUR ---
2nd liter of fluid completed, pt. resting states feels better
[2021-05-11] MEDS ORDERED: IBUP-1969 PO (12:42)
--- NOTE | 2021-05-11 13:00 | NUR ---
Patient given written and verbal discharge instructions and verbalizes understanding. ER Dr. Ch discussed with patient the results and treatment provided. Patient in stable condition. ID arm band removed. IV catheter removed intact and dressing applied, no active bleeding. Rx of Ibuprofen given. Patient educated on pain management and to follow up with PMD. Pain Scale 4. Opportunity for questions provided and answered. Medication side effect fact sheet provided.
[2021-05-11 13:01] VITALS: BP_SYST 189
== END 2021-05-11 13:00 | disposition home or self-care (01) ==
LOC: SED 06:34
DX: U07.1 COVID-19 (principal); E86.0 Dehydration; I10 Essential (primary) hypertension; J45.909 Unspecified asthma, uncomplicated; F32.9 Major depressive disorder, single episode, unspecified; Z88.0 Allergy status to penicillin; Z88.5 Allergy status to narcotic agent; Z79.899 Other long term (current) drug therapy
CPT/HCPCS: 36415; 70450; 71045; 76376; 80053; 81003; 83605; 85025; 85610; 85730; 86710; 87426; 96361; 96374; 99285; J2765; J7030

== ENCOUNTER 2021-08-19 05:47 | Emergency (ER) | payer OTHER, MEDICAID ==
[~2021-08-19] VITALS: Ht 175.3 cm; Wt 104.3 kg
[~2021-08-19 05:47] MED LIST changes: +IBUP-1969 PO
[2021-08-19 05:53] VITALS: BP_SYST 174
--- NOTE | 2021-08-19 05:55 | NUR ---
Placed in room 2 . Placed on alarm security or surveillance monitor, blood pressure machine and pulse oximeter. To gown for exam. Side rails up. Report given to CHETAN SPAIN.
--- NOTE | 2021-08-19 06:00 | NUR ---
Patient is awake and alert. C/O headache x3 days radiating to back of neck and back. Pain stated 12/17. Denies N/V/D/SOB. No other complaints at this time. Will continue to monitor.
--- NOTE | 2021-08-19 06:05 | NUR ---
ER MD PAEZ AT BEDSIDE EXAMINING PATIENT.
[2021-08-19] MEDS ORDERED: cloNIDine HCL 0.1 MG TABLET PO ONE (06:15)
[2021-08-19] MEDS ORDERED: PROCHLORPERAZINE EDISYLATE 10 MG/2 ML VIAL IM ONE (06:15)
[2021-08-19] MEDS ORDERED: KETOROLAC TROMETHAMINE 60 MG/2 ML VIAL IM ONE (06:15)
--- NOTE | 2021-08-19 07:02 | NUR ---
ENDORSEMENT Patient care endorsed to franck SPAIN.
--- NOTE | 2021-08-19 07:18 | NUR ---
ASSESSED PT PROVIDED BLANKET AND PILLOW. PT DENIES PAIN. HE IS RESTING COMFORTABLY IN BED. BED LOWERED AND LOCKED AND RAILS UP.
[2021-08-19 08:14] VITALS: BP_SYST 182
--- NOTE | 2021-08-19 08:16 | NUR ---
Patient given written and verbal discharge instructions and verbalizes understanding. VEE Delatorre MD discussed with patient the results and treatment provided. Patient in stable condition. ID arm band removed. no rx. Patient follow up with PMD. Pain Scale [ 0]. Opportunity for questions provided and answered. Medication side effect fact sheet provided.
== END 2021-08-19 08:14 | disposition home or self-care (01) ==
LOC: SED 05:47
DX: G44.209 Tension-type headache, unspecified, not intractable (principal); I16.0 Hypertensive urgency; J45.909 Unspecified asthma, uncomplicated; I10 Essential (primary) hypertension; Z88.0 Allergy status to penicillin; Z88.5 Allergy status to narcotic agent
CPT/HCPCS: 96372; 99285; J0780; J1885

== ENCOUNTER 2021-09-14 12:30 | Emergency (ER) | payer OTHER, MEDICAID ==
[~2021-09-14] VITALS: Ht 175.3 cm; Wt 104.3 kg
[2021-09-14 12:32] VITALS: BP_SYST 154
[2021-09-14] MEDS ORDERED: ALBUTEROL SULFATE 0.083% 2.5 MG/3 ML VIAL.NEB INH ONE ×3 (12:37→13:15)
[2021-09-14] MEDS ORDERED: methylPREDNISolone SOD SUCC/PF 62.5 MG/ML VIAL IVP ONE (13:00)
[2021-09-14] MEDS ORDERED: PRED20TA PO (13:13)
[2021-09-14] MEDS ORDERED: ALBMDI INH (13:17)
[2021-09-14] MEDS ORDERED: ALBU2.5V7 INH (13:24)
[2021-09-14 14:54] VITALS: BP_SYST 128
== END 2021-09-14 14:55 | disposition home or self-care (01) ==
LOC: SED 12:30
DX: R06.02 Shortness of breath (principal)
CPT/HCPCS: 71045; 94640; 96374; 99284; J2930; J7613; 94760

== ENCOUNTER 2021-09-25 13:15 | Emergency (ER) | payer OTHER, MEDICAID ==
[~2021-09-25] VITALS: Ht 175.3 cm; Wt 104.3 kg
[2021-09-25 13:15] VITALS: BP_SYST 187
[~2021-09-25 13:15] MED LIST changes: +ALBU2.5V7 INH
[2021-09-25] MEDS ORDERED: CYCL10TA24 PO (15:50)
[2021-09-25 16:20] VITALS: BP_SYST 160
== END 2021-09-25 16:21 | disposition home or self-care (01) ==
LOC: SED 13:15
DX: I10 Essential (primary) hypertension (principal); M62.838 Other muscle spasm; J45.909 Unspecified asthma, uncomplicated; Z88.0 Allergy status to penicillin; Z88.5 Allergy status to narcotic agent; Z91.010 Allergy to peanuts; Z79.84 Long term (current) use of oral hypoglycemic drugs; Z79.899 Other long term (current) drug therapy
CPT/HCPCS: 93005; 99283

== ENCOUNTER 2023-10-11 18:40 | Emergency (ER) | payer MEDICAID, OTHER ==
[~2023-10-11] VITALS: Ht 175.3 cm; Wt 97.5 kg
[~2023-10-11 18:40] MED LIST changes: +CYCL10TA24 PO; +LOSA-415 PO; -LOSA100T3 PO; +NEBI5TAB2 PO; -NEBI5TAB3 PO; +SILD20TA10 PO; -SILD20TA2 PO
[2023-10-11 19:02] VITALS: BP_SYST 146; PULSE 65; RESP 16; TEMP 97.7; O2SAT 98
[2023-10-11] MEDS ORDERED: KETOROLAC TROMETHAMINE 60 MG/2 ML VIAL IM ONE (20:00)
== END 2023-10-11 20:25 | disposition home or self-care (01) ==
LOC: SED 18:40
DX: M54.50 Low back pain, unspecified (principal); J45.909 Unspecified asthma, uncomplicated; I10 Essential (primary) hypertension; F32.A Depression, unspecified; Z88.0 Allergy status to penicillin; Z88.5 Allergy status to narcotic agent; Z91.010 Allergy to peanuts; Z79.899 Other long term (current) drug therapy; Z79.2 Long term (current) use of antibiotics
CPT/HCPCS: 96372; 99281; 99283; J1885

== ENCOUNTER 2023-10-27 02:26 | Emergency (ER) | payer OTHER ==
[~2023-10-27] VITALS: Ht 175.3 cm; Wt 97.5 kg
[2023-10-27 02:42] VITALS: BP_SYST 176; PULSE 65; RESP 18; TEMP 98.1; O2SAT 97
[2023-10-27] MEDS: KETOROLAC TROMETHAMINE 60 MG/2 ML VIAL IM ONE (03:50)
[2023-10-27 04:48] LABS: BILIRUBIN,URINE NEGATIVE (NEGATIVE); BLOOD, URINE NEGATIVE (NEGATIVE); CLARITY/URINE CLEAR (CLEAR); COLOR,URINE YELLOW (YELLOW); GLUCOSE,URINE NEGATIVE (NEGATIVE); KETONES,URINE NEGATIVE (NEGATIVE); LEUKOCYTE ESTERASE ,URINE NEGATIVE (NEGATIVE); NITRITE, URINE NEGATIVE (NEGATIVE); UROBILINOGEN,URINE 0.2 (0.2-1.0)
[2023-10-27 05:10] LABS: PROTEIN URINE NEGATIVE (NEGATIVE)
[2023-10-27] MEDS ORDERED: NAPR-1172 PO (05:20)
[2023-10-27 05:42] VITALS: BP_SYST 176; PULSE 65; RESP 18; TEMP 98.1; O2SAT 97
== END 2023-10-27 05:42 | disposition home or self-care (01) ==
LOC: SED 02:26
DX: M54.50 Low back pain, unspecified (principal); J45.909 Unspecified asthma, uncomplicated; I25.2 Old myocardial infarction; I10 Essential (primary) hypertension; F32.A Depression, unspecified; Z98.890 Other specified postprocedural states; Z88.0 Allergy status to penicillin; Z88.5 Allergy status to narcotic agent; Z91.010 Allergy to peanuts; Z79.899 Other long term (current) drug therapy; Z79.2 Long term (current) use of antibiotics
CPT/HCPCS: 99283; 81001; 96372; J1885; 81003

== ENCOUNTER 2023-11-30 19:08 | Emergency (ER) | payer OTHER ==
[~2023-11-30] VITALS: Ht 175.3 cm; Wt 97.5 kg
[~2023-11-30 19:08] MED LIST changes: +NAPR-1172 PO; -NEBI5TAB2 PO; +NEBI5TAB9 PO
[2023-11-30 19:47] VITALS: BP_SYST 167; PULSE 103; RESP 20; TEMP 99.6; O2SAT 97
[2023-11-30 20:30] LABS: INFLUENZA TYPE A Negative (NEGATIVE); INFLUENZA TYPE B NEGATIVE (NEGATIVE)
[2023-11-30 20:40] LABS: COVID19 ANTIGEN SOFIA FIA POSITIVE (NEGATIVE)
== END 2023-11-30 21:00 | disposition home or self-care (01) ==
LOC: SED 19:08
DX: U07.1 COVID-19 (principal); J45.909 Unspecified asthma, uncomplicated; I25.2 Old myocardial infarction; I10 Essential (primary) hypertension; G89.29 Other chronic pain; Z88.0 Allergy status to penicillin; Z88.5 Allergy status to narcotic agent; Z91.010 Allergy to peanuts; Z79.899 Other long term (current) drug therapy; Z79.2 Long term (current) use of antibiotics
CPT/HCPCS: 36415; 99283

== ENCOUNTER 2024-02-05 13:02 | Emergency (ER) | payer OTHER ==
[~2024-02-05] VITALS: Ht 175.3 cm; Wt 97.1 kg
[2024-02-05 13:11] VITALS: BP_SYST 150; PULSE 85; RESP 18; TEMP 97.4; O2SAT 95
[2024-02-05 13:51] LABS: BASOPHILS # (AUTO) 0.1 K/uL (0.0-0.2); BASOPHILS % (AUTO) 0.6 % (0.0-2.0); EOSINOPHILS # (AUTO) 0.1 K/uL (0.0-0.4); EOSINOPHILS % (AUTO) 1.1 % (0.0-4.0); HEMATOCRIT 44.5 % (36-54); LYMPHOCYTES # (AUTO) 1.1 K/uL (1.0-5.5); LYMPHOCYTES % (AUTO) 7.6 % (20.5-51.5); MEAN CORPUSCULAR HEMOGLOBIN 31 pg (27-31); MEAN CORPUSCULAR HGB CONC 34 % (32-36); MEAN CORPUSCULAR VOLUME 93 fL (79.0-98.0); MONOCYTES # (AUTO) 1.3 K/uL (0.0-1.0); MONOCYTES % (AUTO) 9.3 % (1.7-9.3); NEUTROPHILS # (AUTO) 11.3 K/uL (1.8-7.7); NEUTROPHILS % (AUTO) 81.4 % (40.0-70.0); PLATELET COUNT (AUTO) 311 K/uL (130-430); RED BLOOD CELL COUNT(AUTO) 4.79 MIL/uL (4.2-6.2); WHITE BLOOD COUNT (AUTO) 13.8 K/uL (4.8-10.8)
[2024-02-05 14:36] LABS: CREATININE 0.9 mg/dL (0.55-1.30); POTASSIUM 4.1 mmol/L (3.5-5.1)
[2024-02-05] MEDS ORDERED: CLIN-142 PO (15:05)
[2024-02-05] MEDS ORDERED: HYDR-3927 PO (15:05)
[2024-02-05 15:19] VITALS: BP_SYST 150; PULSE 85; RESP 18; TEMP 97.4; O2SAT 95
== END 2024-02-05 15:15 | disposition home or self-care (01) ==
LOC: SED 13:02
DX: L03.114 Cellulitis of left upper limb (principal); J45.909 Unspecified asthma, uncomplicated; I25.2 Old myocardial infarction; I10 Essential (primary) hypertension; Z88.0 Allergy status to penicillin; Z88.5 Allergy status to narcotic agent; Z91.010 Allergy to peanuts; Z79.899 Other long term (current) drug therapy; Z79.52 Long term (current) use of systemic steroids
CPT/HCPCS: 36415; 80048; 83605; 85025; 99284